=== PATIENT | female | born 1975 | race Two or more races ===

== ENCOUNTER → 2018-01-08 | Outpatient (CLI) | payer BC ==
[~2018-01-08] MED LIST: ACEASPCAF PO; ADDERALL 10 MG10 MG PO; AMOX500 PO; CHLO500 PO; CIPR500; CLIN300 PO; CODGUAEL PO; CYAN100 PO; CYAN1000I IM; CYCL10 PO; Cymbalta30 MG PO; D3-20002000 UNIT PO; DIPH50 PO; DOC250 PO; ESCI20; FLUSAL2505; Flonase 0.05% N16 GM; GABA100 PO; GUAPSEER PO; HYDACE5 PO; HYDACE5325 PO; HYDACE7.5 PO; HYDR1TAB94 PO; IBUP800 PO; KETO10 PO; LEVSOD100 PO; METPHE10 PO; OMEP20ER PO; ONDA8 PO; PRO-AIR; PROACE100 PO; PROM25 PO; Percocet 10-321 EACH PO; RANI150 PO; Roxicodone5 MG PO; SULTRIDS PO; Valium5 MG PO; Zofran4 MG PO
[2018-01-08 09:43] LABS: BASOPHILS ABSOLUTE AUTO 0.03 K/mm3 (0.00-0.23); BASOPHILS PERCENT AUTO 0 % (0-2); EOSINOPHILS ABSOLUTE AUTO 0.17 K/mm3 (0.00-0.68); EOSINOPHILS PERCENT AUTO 2 % (0-6); Hematocrit 37.8 % (33.0-51.0); Hemoglobin 12.2 g/dL (11.5-16.0); IMMATURE GRAN ABSOLUTE AUTO 0.04 K/mm3 (0.00-0.10); IMMATURE GRAN PERCENT AUTO 1 % (0-1); LYMPHOCYTES PERCENT AUTO 20 % (21-46); MONOCYTES ABSOLUTE AUTO 0.48 K/mm3 (0.16-1.47); MONOCYTES PERCENT AUTO 5 % (4-13); Mean Corpuscular HGB 30.3 pg (26.0-34.0); Mean Corpuscular HGB Conc 32.3 g/dL (31.5-36.5); Mean Corpuscular Volume 94 fL (80-100); Mean Platelet Volume 10.4 fL (9.1-12.4); NEUTROPHILS PERCENT AUTO 72 % (41-73); Platelet Count 299 K/mm3 (150-400); RDW Coefficient Variation 12.2 % (11.7-14.2); RDW Standard Deviation 42.5 fL (35.1-46.3); Red Blood Cell Count 4.03 M/mm3 (3.80-5.20); White Blood Cell Count 8.82 K/mm3 (4.00-11.30)
[2018-01-08 10:04] LABS: Alanine Aminotransfer (ALT/SGP 30 U/L (12-78); Albumin, Blood 3.5 g/dL (3.4-5.0); Albumin/Globulin Ratio 0.9 (0.8-1.8); Alk Phos 82 U/L (50-136); Anion Gap 7 mmol/L (6-16); Aspartate Aminotrans (AST/SGOT 10 U/L (12-37); Bilirubin, Total 0.2 mg/dL (0.1-1.0); Blood Urea Nitrogen 13 mg/dL (8-24); Bun/Creatinine Ratio 22.5 (12.0-20.0); CO2, Blood 28 mmol/L (21-32); Calcium, Blood 9.2 mg/dL (8.5-10.1); Chloride, Blood 104 mmol/L (98-108); Creatinine, Blood 0.58 mg/dL (0.40-1.00); Glomerular Filtration Rate >60 (60-); Glucose, Blood 181 mg/dL (70-99); Potassium, Blood 3.8 mmol/L (3.5-5.5); Sodium, Blood 139 mmol/L (136-145); Total Protein, Blood 7.5 g/dL (6.4-8.2)
== END ==
LOC: LAB SHORT 09:22 → LAB 09:22
DX: R03.0 Elevated blood-pressure reading, without diagnosis of hypertension (principal)
CPT/HCPCS: 80053; 85025

== ENCOUNTER → 2018-02-06 | Outpatient (CLI) | payer BC ==
[~2018-02-06] MED LIST changes: +AMPDEX10 PO; +CELE200 PO; +CVS TENSION HE1 EACH PO; +GABA300 PO; +IBUP600 PO; +Omeprazole20 M1 PO; +PANT20 PO; +PANT40 PO; +Prednisone50 MG PO; +Ranitidine HCl150 M1 PO; +Robaxin-750750 MG PO
== END | disposition home or self-care (01) ==
LOC: LAB 11:28
DX: E03.9 Hypothyroidism, unspecified (principal); R73.01 Impaired fasting glucose
CPT/HCPCS: 83036; 84443

== ENCOUNTER 2018-04-05 19:34 | Emergency (ER) | payer BC ==
[~2018-04-05] VITALS: Ht 162.6 cm; Wt 100.7 kg
[~2018-04-05 19:34] MED LIST changes: -AMPDEX10 PO; -CELE200 PO; -CVS TENSION HE1 EACH PO; -GABA300 PO; -IBUP600 PO; -Omeprazole20 M1 PO; -PANT20 PO; -PANT40 PO; -Prednisone50 MG PO; -Ranitidine HCl150 M1 PO; -Robaxin-750750 MG PO
[2018-04-05] MEDS ORDERED: GABA300 PO (20:02)
[2018-04-05] MEDS ORDERED: AMPDEX10 PO (20:02)
[2018-04-05] MEDS ORDERED: PANT20 PO (20:04)
[2018-04-05] MEDS ORDERED: Prednisone50 MG PO (21:12)
[2018-04-05] MEDS ORDERED: IBUP600 PO (21:12)
[2018-04-05] MEDS ORDERED: Robaxin-750750 MG PO (21:12)
== END 2018-04-05 21:29 | disposition home or self-care (01) ==
LOC: ER 19:34
DX: G89.29 Other chronic pain (principal); M54.5 Low back pain; Z79.899 Other long term (current) drug therapy; Z87.891 Personal history of nicotine dependence
CPT/HCPCS: 96372; 99283; J1100; J1885

== ENCOUNTER 2018-04-10 13:54 | Day surgery (SDC) | payer BC ==
[~2018-04-10] VITALS: Ht 162.6 cm; Wt 102.2 kg
[~2018-04-10 13:54] MED LIST changes: +AMPDEX10 PO; +GABA300 PO; +IBUP600 PO; +PANT20 PO; +Prednisone50 MG PO; +Robaxin-750750 MG PO
== END 2018-04-10 16:11 | disposition home or self-care (01) ==
LOC: ORSCSDS 13:54
PROVIDERS: Internal Medicine Gastroenterology
PROC: 0D748ZZ Dilation of Esophagogastric Junction, Via Natural or Artificial Opening Endoscopic (ICD-10-PCS; 2018-04-10)
PROC: 0DB58ZX Excision of Esophagus, Via Natural or Artificial Opening Endoscopic, Diagnostic (ICD-10-PCS; principal; 2018-04-10 15:15)
PROC: 0DB88ZX Excision of Small Intestine, Via Natural or Artificial Opening Endoscopic, Diagnostic (ICD-10-PCS; principal; 2018-04-10 15:15)
PROC: 0DB68ZX Excision of Stomach, Via Natural or Artificial Opening Endoscopic, Diagnostic (ICD-10-PCS; principal; 2018-04-10 15:15)
DX: K21.9 Gastro-esophageal reflux disease without esophagitis (principal); K25.9 Gastric ulcer, unspecified as acute or chronic, without hemorrhage or perforation; K29.70 Gastritis, unspecified, without bleeding; K31.9 Disease of stomach and duodenum, unspecified; R13.10 Dysphagia, unspecified; R11.2 Nausea with vomiting, unspecified; R19.7 Diarrhea, unspecified; G47.30 Sleep apnea, unspecified; E03.9 Hypothyroidism, unspecified; Z79.899 Other long term (current) drug therapy
CPT/HCPCS: J2250; J2405

== ENCOUNTER 2019-01-08 12:33 | Day surgery (SDC) | payer BC ==
[~2019-01-08] VITALS: Ht 162.6 cm; Wt 95.2 kg
[~2019-01-08 12:33] MED LIST changes: +CELE200 PO; +CVS TENSION HE1 EACH PO; -CYAN100 PO; +CYAN500 PO; +FIORINAL-COD 31 EACH PO; +Omeprazole20 M1 PO; +PANT40 PO; +Ranitidine HCl150 M1 PO; +ZESTORETIC 20-121 EA PO
--- NOTE | 2019-01-08 13:16 | NUR ---
PT ADMITTED TO [facility]. AGREES WITH PLANNED PROCEDURE. LUNG SOUNDS CLEAR.
--- NOTE | 2019-01-08 13:18 | NUR ---
PT STATES SHE IS FEELING MORE AWAKE. O2 TUNED OFF.
--- NOTE | 2019-01-08 14:05 | NUR ---
01/08/19 1405 Akash Licona Bite Block Placed3-LEAD EKG REVIEWED WITH PHYSICIAN PRIOR TO START OF PROCEDURE.Patient to ENDO 1History, Chart, Medications and Allergies reviewed before start of procedure.MONITOR INTACT WITH CONTINUOUS PULSE OXIMETRY AND INTERMITTENT BP.O2 VIA N/C INTACT THROUGHOUT SEDATION/PROCEDURE.See Anesthesia record.
--- NOTE | 2019-01-08 14:58 | NUR ---
Patient up to Ambulate independently. Gait steady. Discharge instructions reviewed with patient. Patient verbalizes understanding. Copy given to patient to take home. Patient States Post-Procedure ride home has been arranged. Discharged via wheelchair to private car for ride home.
== END 2019-01-08 22:44 | disposition home or self-care (01) ==
LOC: ORSCMMR 12:33 → ORD 14:00 → ORSCMMR 22:44
PROVIDERS: Internal Medicine Gastroenterology
PROC: 0DB58ZX Excision of Esophagus, Via Natural or Artificial Opening Endoscopic, Diagnostic (ICD-10-PCS; principal; 2019-01-08 14:00)
PROC: 0DB68ZX Excision of Stomach, Via Natural or Artificial Opening Endoscopic, Diagnostic (ICD-10-PCS; principal; 2019-01-08 14:00)
DX: K21.9 Gastro-esophageal reflux disease without esophagitis (principal); K20.9 Esophagitis, unspecified; I10 Essential (primary) hypertension; G47.33 Obstructive sleep apnea (adult) (pediatric); E03.9 Hypothyroidism, unspecified; E66.01 Morbid (severe) obesity due to excess calories; Z68.36 Body mass index [BMI] 36.0-36.9, adult; Z79.899 Other long term (current) drug therapy
CPT/HCPCS: 88305; 88342; J7120

== ENCOUNTER 2022-01-22 23:58 | Emergency (ER) | payer BC ==
[~2022-01-22] VITALS: Ht 162.6 cm; Wt 71.2 kg
[2022-01-23 00:14] LABS: Source, Urine Foley catheter
[2022-01-23 00:17] LABS: BASOPHILS ABSOLUTE AUTO 0.04 K/mm3 (0.00-0.23); BASOPHILS PERCENT AUTO 0 % (0-2); EOSINOPHILS ABSOLUTE AUTO 0.05 K/mm3 (0.00-0.68); EOSINOPHILS PERCENT AUTO 1 % (0-6); Hematocrit 38.8 % (33.0-51.0); Hemoglobin 12.5 g/dL (11.5-16.0); IMMATURE GRAN ABSOLUTE AUTO 0.04 K/mm3 (0.00-0.10); IMMATURE GRAN PERCENT AUTO 0 % (0-1); LYMPHOCYTES ABSOLUTE AUTO 1.72 K/mm3 (0.84-5.20); LYMPHOCYTES PERCENT AUTO 17 % (21-46); MONOCYTES ABSOLUTE AUTO 0.63 K/mm3 (0.16-1.47); MONOCYTES PERCENT AUTO 6 % (4-13); Mean Corpuscular HGB 33.8 pg (26.0-34.0); Mean Corpuscular HGB Conc 32.2 g/dL (31.5-36.5); Mean Corpuscular Volume 105 fL (80-100); Mean Platelet Volume 10.1 fL (9.1-12.4); NEUTROPHILS ABSOLUTE AUTO 7.67 K/mm3 (1.96-9.15); NEUTROPHILS PERCENT AUTO 76 % (41-73); Platelet Count 220 K/mm3 (150-400); RDW Coefficient Variation 12.1 % (11.7-14.2); RDW Standard Deviation 47.3 fL (35.1-46.3); White Blood Cell Count 10.15 K/mm3 (4.00-11.30)
[2022-01-23 00:28] LABS: Appearance, Urine Hazy (Clear); Bilirubin, Urine Neg (Neg); Blood, Urine Neg (Neg); Color, Urine Yellow (P-Yellow); Glucose Qualitative, Urine Neg (Neg); Ketones, Urine 2+ (Neg); Leukocyte Esterase, Urine Neg (Neg); Nitrite, Urine Pos (Neg); Protein, Urine Neg (Neg); U Amphetamine Screen DETECTED; U Barbituate Screen Not Detected; U Benzodiazapine Screen Not Detected; U Buprenorphine Screen Not Detected; U Cannabinoids Screen Not Detected; U Cocaine Screen Not Detected; U Methadone Screen Not Detected; U Methamphetamine Screen Not Detected; U Opiates Screen Not Detected; U Oxycodone Screen Not Detected; U Phencyclidine Screen Not Detected; U Propoxyphene Screen Not Detected; Urobilinogen, Urine NORM (Normal)
[2022-01-23 00:30] LABS: Alanine Aminotransfer (ALT/SGP 48 U/L (12-78); Albumin, Blood 3.4 g/dL (3.4-5.0); Albumin/Globulin Ratio 1.1 (0.8-1.8); Alk Phos 73 U/L (50-136); Anion Gap 12 mmol/L (6-16); Aspartate Aminotrans (AST/SGOT 29 U/L (12-37); Bilirubin, Total 0.2 mg/dL (0.1-1.0); Blood Urea Nitrogen 17 mg/dL (8-24); CO2, Blood 25 mmol/L (21-32); Calcium, Blood 8.4 mg/dL (8.5-10.1); Chloride, Blood 104 mmol/L (98-108); Creatinine, Blood 0.46 mg/dL (0.40-1.00); Globulin, Blood 3.2 g/dL (2.2-4.0); Glomerular Filtration Rate >60 (60-); Glucose, Blood 103 mg/dL (70-99); Potassium, Blood 3.4 mmol/L (3.5-5.5); Sodium, Blood 141 mmol/L (136-145); Total Protein, Blood 6.6 g/dL (6.4-8.2)
[2022-01-23 00:38] LABS: Bacteria Many /hpf; Red Blood Cells, Urine Not Seen /hpf (0-2); Squamous Epithelial Cells Few /hpf (Few); White Blood Cells, Urine 0-2 /hpf (0-5)
[2022-01-23 00:59] LABS: Ethanol (Alcohol), Blood, Med 58 mg/dL; Free Thyroxine 0.82 ng/dL (0.70-1.60); Prolactin 131.6 ng/mL
[2022-01-23] MEDS ORDERED: WAKIX17.8 MG PO (01:10)
[2022-01-23] MEDS ORDERED: MODA200 PO (01:11)
[2022-01-23 01:13] LABS: International Normalized Ratio 0.94; Prothrombin Time Results 9.9 Sec (9.7-11.5)
[2022-01-23] MEDS ORDERED: CEPH500 PO (02:45)
== END 2022-01-23 03:00 | disposition home or self-care (01) ==
LOC: ER 23:58
PROVIDERS: Student in an Organized Health Care Education/Training Program
DX: R56.9 Unspecified convulsions (principal); N39.0 Urinary tract infection, site not specified; Z87.891 Personal history of nicotine dependence; Z79.899 Other long term (current) drug therapy
CPT/HCPCS: 51702; 70450; 71045; 80053; 81001; 81025; 82140; 83605; 84146; 84439; 84443; 84484; 85025; 85610; 87077; 87086; 87186; 93005; 93010; 99285-25; G0480; J0696; J2310; J2405; J7030

== ENCOUNTER → 2024-02-29 | Outpatient (CLI) | payer OTHER ==
[~2024-02-29] MED LIST changes: +CEPH500 PO; +MODA200 PO; +WAKIX17.8 MG PO
[2024-02-29 19:40] LABS: Bilirubin, Urine Neg (Neg); Blood, Urine Neg (Neg); Glucose Qualitative, Urine Neg (Neg); Ketones, Urine Neg (Neg); Leukocyte Esterase, Urine Neg (Neg); Nitrite, Urine Pos (Neg); Protein, Urine Neg (Neg); Specific Gravity, Urine 1.015 (1.003-1.022); Urobilinogen, Urine NORM (Normal)
[2024-02-29 19:48] LABS: Appearance, Urine Hazy (Clear); Bacteria Many /hpf; Color, Urine Yellow (P-Yellow)
[2024-02-29 19:49] LABS: Hyaline Casts 0-2 /lpf (0-2); Red Blood Cells, Urine 0-2 /hpf (0-2); Squamous Epithelial Cells Few /hpf (Few); White Blood Cells, Urine 0-2 /hpf (0-5)
== END | disposition home or self-care (01) ==
LOC: LAB SHORT 14:12 → LAB 14:12
PROVIDERS: Physician Assistant
DX: R14.0 Abdominal distension (gaseous) (principal); R10.84 Generalized abdominal pain
CPT/HCPCS: 81001; 87077; 87086; 87186

== ENCOUNTER 2025-03-05 21:44 | Emergency (ER) | payer OTHER ==
[~2025-03-05] VITALS: Ht 162.6 cm; Wt 72.6 kg
[2025-03-05 22:19] LABS: BASOPHILS ABSOLUTE AUTO 0.04 K/mm3 (0.00-0.23); BASOPHILS PERCENT AUTO 0 % (0-2); EOSINOPHILS ABSOLUTE AUTO 0.06 K/mm3 (0.00-0.68); EOSINOPHILS PERCENT AUTO 1 % (0-6); Hematocrit 40.8 % (33.0-51.0); Hemoglobin 13.6 g/dL (11.5-16.0); IMMATURE GRAN ABSOLUTE AUTO 0.04 K/mm3 (0.00-0.10); IMMATURE GRAN PERCENT AUTO 0 % (0-1); LYMPHOCYTES ABSOLUTE AUTO 1.13 K/mm3 (0.84-5.20); LYMPHOCYTES PERCENT AUTO 12 % (21-46); MONOCYTES ABSOLUTE AUTO 0.62 K/mm3 (0.16-1.47); MONOCYTES PERCENT AUTO 6 % (4-13); Mean Corpuscular HGB Conc 33.3 g/dL (31.5-36.5); Mean Corpuscular Volume 96 fL (80-100); Mean Platelet Volume 9.9 fL (9.1-12.4); NEUTROPHILS ABSOLUTE AUTO 7.79 K/mm3 (1.96-9.15); NEUTROPHILS PERCENT AUTO 81 % (41-73); Platelet Count 251 K/mm3 (150-400); RDW Standard Deviation 53.3 fL (35.1-46.3); Red Blood Cell Count 4.25 M/mm3 (3.80-5.20); White Blood Cell Count 9.68 K/mm3 (4.00-11.30)
[2025-03-05] MEDS ORDERED: Ondansetron HCl 2 MG / ML 2ML Vial IV ONE ×2 (22:40→22:45)
[2025-03-05 22:42] LABS: Albumin/Globulin Ratio 1.1 (0.8-1.8); Bilirubin, Total 0.3 mg/dL (0.1-1.0); Calcium, Blood 9.7 mg/dL (8.5-10.1); Creatinine, Blood 0.57 mg/dL (0.40-1.00); Globulin, Blood 3.5 g/dL (2.2-4.0); Potassium, Blood 3.9 mmol/L (3.5-5.5); Total Protein, Blood 7.5 g/dL (6.4-8.2)
[2025-03-05] MEDS ORDERED: Morphine Sulfate 4 MG/1 ML Injection IV ONE (22:45)
[2025-03-05] MEDS ORDERED: NS 1,000 ML IV SCH (22:45)
[2025-03-05 22:52] LABS: Magnesium, Blood 2.3 mg/dL (1.6-2.4)
[2025-03-05] MEDS ORDERED: Acetaminophen 500 MG Tab PO ONE (23:55)
[2025-03-06] MEDS ORDERED: HYDROmorphone HCl/Pf 1MG SYR IV ONE (00:40)
[2025-03-06 00:55] LABS: Source, Urine Clean Catch
[2025-03-06 01:06] LABS: Bilirubin, Urine Neg (Neg); Blood, Urine Neg (Neg); Glucose Qualitative, Urine Neg (Neg); Ketones, Urine 4+ (Neg); Leukocyte Esterase, Urine Neg (Neg); Nitrite, Urine Pos (Neg); Protein, Urine Neg (Neg); Urobilinogen, Urine NORM (Normal)
[2025-03-06 01:10] LABS: Appearance, Urine Clear (Clear); Color, Urine Yellow (P-Yellow)
[2025-03-06 01:12] LABS: Bacteria Many /hpf; Red Blood Cells, Urine Not Seen /hpf (0-2); Squamous Epithelial Cells Not Seen /hpf (Few); White Blood Cells, Urine 0-2 /hpf (0-5)
[2025-03-06 01:30] VITALS: BP 180/104
[2025-03-06] MEDS ORDERED: HYDROmorphone HCl/Pf 1MG SYR IV PRN (01:30)
[2025-03-06] MEDS ORDERED: Piperacillin/Tazobactam Sod 4.5 GM in NS 100 ML IV ONE (01:45)
[2025-03-06] MEDS ORDERED: NS 1,000 ML IV SCH ×2 (03:00→03:20)
== END 2025-03-06 04:45 | disposition short-term general hospital (02) ==
LOC: ER 21:44
PROVIDERS: Emergency Medicine; Student in an Organized Health Care Education/Training Program
DX: K56.699 Other intestinal obstruction unspecified as to partial versus complete obstruction (principal); K46.9 Unspecified abdominal hernia without obstruction or gangrene; Z87.891 Personal history of nicotine dependence; Z79.899 Other long term (current) drug therapy; Z88.6 Allergy status to analgesic agent
CPT/HCPCS: 74177; 80053; 81001; 83690; 83735; 85025; 87077; 87086; 87186; 96361; 96365; 96375; 96376; 99284-25; A9270; J1171; J2270; J2405; J2543; J7030; Q9967

== ENCOUNTER → 2025-03-16 | Outpatient (CLI) | payer OTHER | END | disposition home or self-care (01) | LOC: LAB SHORT 14:34 → LAB 14:34 | DX: N39.0 Urinary tract infection, site not specified (principal) | CPT/HCPCS: 87086 ==

== ENCOUNTER 2025-05-27 09:46 | Emergency (ER) | payer OTHER ==
[~2025-05-27] VITALS: Ht 162.6 cm; Wt 72.6 kg
[2025-05-27 11:25] LABS: BASOPHILS ABSOLUTE AUTO 0.03 K/mm3 (0.00-0.23); BASOPHILS PERCENT AUTO 0 % (0-2); EOSINOPHILS ABSOLUTE AUTO 0.15 K/mm3 (0.00-0.68); EOSINOPHILS PERCENT AUTO 2 % (0-6); Hematocrit 41.5 % (33.0-51.0); Hemoglobin 13.5 g/dL (11.5-16.0); IMMATURE GRAN ABSOLUTE AUTO 0.11 K/mm3 (0.00-0.10); IMMATURE GRAN PERCENT AUTO 1 % (0-1); LYMPHOCYTES ABSOLUTE AUTO 1.22 K/mm3 (0.84-5.20); LYMPHOCYTES PERCENT AUTO 15 % (21-46); MONOCYTES ABSOLUTE AUTO 0.47 K/mm3 (0.16-1.47); MONOCYTES PERCENT AUTO 6 % (4-13); Mean Corpuscular HGB Conc 32.5 g/dL (31.5-36.5); Mean Corpuscular Volume 105 fL (80-100); NEUTROPHILS ABSOLUTE AUTO 6.42 K/mm3 (1.96-9.15); NEUTROPHILS PERCENT AUTO 76 % (41-73); NRBC ABSOLUTE 0.00 K/mm3 (0.00-0.02); NRBC Auto 0.0 /100 WBC (0.0-0.2); Platelet Count 396 K/mm3 (150-400); RDW Coefficient Variation 13.6 % (11.7-14.2); RDW Standard Deviation 52.8 fL (35.1-46.3)
[2025-05-27 11:39] LABS: Alanine Aminotransfer (ALT/SGP 33.0 U/L (12-78); Albumin, Blood 3.5 g/dL (3.4-5.0); Albumin/Globulin Ratio 0.9 (0.8-1.8); Anion Gap 6.0 mmol/L (3-11); Aspartate Aminotrans (AST/SGOT 31.0 U/L (12-37); Bilirubin, Total 0.2 mg/dL (0.1-1.0); Blood Urea Nitrogen 15.0 mg/dL (8-24); CO2, Blood 30.0 mmol/L (21-32); Calcium, Blood 8.7 mg/dL (8.5-10.1); Chloride, Blood 104.0 mmol/L (98-108); Creatinine, Blood 0.59 mg/dL (0.40-1.00); Globulin, Blood 3.8 g/dL (2.2-4.0); Glucose, Blood 109.0 mg/dL (70-99); Potassium, Blood 4.5 mmol/L (3.5-5.5); Sodium, Blood 135.0 mmol/L (136-145); Total Protein, Blood 7.3 g/dL (6.4-8.2)
[2025-05-27] MEDS ORDERED: Morphine Sulfate 4 MG/1 ML Injection IV ONE ×3 (12:00→15:05)
[2025-05-27 12:56] LABS: Source, Urine Voided
[2025-05-27 13:27] LABS: Bilirubin, Urine Neg (Neg); Glucose Qualitative, Urine Neg (Neg); Ketones, Urine Neg (Neg); Leukocyte Esterase, Urine Neg (Neg); Protein, Urine 1+ (Neg); Specific Gravity, Urine 1.010 (1.003-1.022); Urobilinogen, Urine NORM (Normal)
[2025-05-27 13:39] LABS: Color, Urine Pale Yellow (P-Yellow)
[2025-05-27] MEDS ORDERED: Pantoprazole Sodium 40 MG Injection IV ONE (14:55)
[2025-05-27 16:15] VITALS: BP 151/99
== END 2025-05-27 16:33 | disposition home or self-care (01) ==
LOC: ER 09:46
PROVIDERS: Emergency Medicine
DX: K31.89 Other diseases of stomach and duodenum (principal); Z98.890 Other specified postprocedural states; Z88.6 Allergy status to analgesic agent; Z79.890 Hormone replacement therapy; Z79.899 Other long term (current) drug therapy; Z87.891 Personal history of nicotine dependence
CPT/HCPCS: 74177; 80053; 83690; 84703; 85025; 96374-59; 96375; 96376; 99285-25; J2270; J2470; Q9967

== ENCOUNTER → 2025-06-02 | Outpatient (CLI) | payer OTHER ==
[2025-06-03 10:12] LABS: Bacterial Vaginosis PCR Negative (NEGATIVE); Candida Group, PCR DETECTED (NOT DETECT); Candida glabrata-krusei, PCR DETECTED (NOT DETECT)
== END ==
LOC: LAB 18:49 → LAB SHORT 18:49
PROVIDERS: Student in an Organized Health Care Education/Training Program
DX: B37.31 Acute candidiasis of vulva and vagina (principal)
CPT/HCPCS: 81515